=== PATIENT | female | born 1970 | race Caucasian/White ===

== ENCOUNTER → 2020-02-03 08:23 | Outpatient (CLI) | payer MEDICARE, MEDICAID, SELFPAY ==
--- NOTE | ~2020-02-03 | US_ITS ---
US soft tissue abdomen 02/03/2020 09:24 Indication: Incisional hernia. Mid abdominal pain and palpable finding. Procedure: High-resolution ultrasound of the mid abdomen soft tissues. Comparison: No prior studies for comparison. Findings: There is a heterogeneous area of hypoechoic soft tissue in the deep tissues of the mid abdo men in the area of palpable concern. This area measures 1.9 x 1.5 cm, most likely representing scarri ng/fibrosis from recent surgery performed July 2019. No evidence for hernia. Impression: 1: Irregular hypoechoic soft tissue posterior margin of the anterior abdominal wall, likely represent ing scarring from recent surgery. No evidence for hernia. Reviewed, dictated and finalized at location B. L STITCHER Impression: 1: Irregular hypoechoic soft tissue posterior margin of the anterior abdominal wall, likely representing scarring from recent surgery. No evidence for hernia.
== END ==
PROVIDERS: PCP Internal Medicine; Visit Provider Internal Medicine
DX: K43.2 Incisional hernia without obstruction or gangrene (principal)
CPT/HCPCS: 76705

== ENCOUNTER → 2020-02-03 08:28 | Outpatient (CLI) | payer MEDICARE, MEDICAID, SELFPAY ==
--- NOTE | ~2020-02-03 | US_ITS ---
EXAMINATION: US pelvic complete w TV DATE: 02/03/2020 10:31 INDICATION: Postmenopausal bleeding Comparison:No prior studies for comparison. TECHNIQUE: Multiple transabdominal and endovaginal sonographic images of the pelvis performed. FINDINGS: The uterus measures 9.3 x 3.8 x 5.2 cm. The endometrial complex measures 13 mm. The ovaries are not visualized. There is no free fluid in the pelvis. There are no abnormal masses seen on either side. IMPRESSION: 1. Thickened endomtrial complex. The differential diagnosis includes endometrial hyperplasia, polyp a nd carcinoma. Biopsy is recommended. Reviewed, dictated and finalized at location B. CTION MOLDING MACHINE SETTER IMPRESSION: 1. Thickened endomtrial complex. The differential diagnosis includes endometria l hyperplasia, polyp and carcinoma. Biopsy is recommended.
== END ==
PROVIDERS: PCP Internal Medicine; Visit Provider Obstetrics & Gynecology
DX: N95.0 Postmenopausal bleeding (principal)
CPT/HCPCS: 76830; 76856

== ENCOUNTER 2020-02-14 08:56 | Emergency (ER) | payer MEDICARE, MEDICAID, SELFPAY ==
--- NOTE | ~2020-02-14 | XR_ITS ---
XR knee LT min 4V 02/14/2020 09:22 INDICATION: Left knee pain PROCEDURE: 4 views left knee COMPARISON: No prior studies for comparison. FINDINGS: Fracture, dislocation or subluxation is not identified. No significant joint effusion. The soft tissues appear within normal limits. No foreign bodies are identified. IMPRESSION: 1: NO ACUTE BONE OR JOINT ABNORMALITY IDENTIFIED. Reviewed, dictated and finalized at location A. CTIVE PRECINCT
[2020-02-14 09:05] VITALS: BP 147/114; PULSE 114; RESP 16; TEMP 36.6; O2SAT 98
--- NOTE | 2020-02-14 10:06 | ED.LOWEXIN ---
HPI - Extremity Injury (Lower) General Chief Complaint: Extremity Injury, Lower Stated Complaint: L Knee Pain Time Seen by Provider: 02/14/20 08:57 Source: patient Mode of arrival: ambulatory Limitations: no limitations History of Present Illness HPI Narrative: 49-year-old with a history of bipolar disorder, hypertension, hypercholesteremia here with complaints of left knee pain since yesterday. Patient states that she lost her balance and fell on her left knee. She also complains of left buttock pain. She denies any head injury or neck pain. No other complaints MD complaint: knee injury (left) and fall Onset (ago): day(s) (1) Injury: Left: knee Place: home Severity: moderate Relieving factors: nothing Exacerbating factors: movement Context: fall Associated symptoms: snap/pop sensation Other symptoms: none Related Data Allergies Allergy/AdvReac Type Severity Reaction Status Date / Time No Known Allergies Allergy Unverified 08/29/16 11:41 Review of Systems Review of Systems: All systems reviewed & are unremarkable except as noted in HPI and below Constitutional: Constitutional: Reports no additional constitutional complaints Eyes: Eyes: Reports no additional eye complaints ENT: Reports system reviewed and no additional complaints, except as documented Cardiovascular: Cardiovascular: Reports no additional cardiovascular complaints Respiratory: Respiratory: Reports no additional respiratory complaints Neurologic: Reports system reviewed and no additional complaints, except as documented Endocrine: Endocrine: Reports no additional endocrine complaints PMFSH Social History Social History Gender identity (if verbalized by the patient): Female Exam Narrative: Exam Narrative: GENERAL: Well-appearing, well-nourished, and in no acute distress. HEAD: Normocephalic, atraumatic. EYES: PERRLA and EOMI. NECK: Supple. CHEST: Clear to auscultation. No respiratory distress. HEART: Regular rate and rhythm. No murmur heard. Normal peripheral pulses. ABDOMEN: Soft, nontender, nondistended, normal active bowel sounds. EXTREMITIES: Normal range of motion. Examination of the left knee shows no obvious deformity mild soft tissue swelling. Tender on palpation SKIN: Warm, dry, no rash. NEURO: No focal deficits. Alert and oriented x3. PSYCH: Normal mood and affect. Course Course Emergency Course: Inform patient about her x-ray findings advised Juan wrap and pain medication as needed Vital Signs Vital signs: Vital Signs Temperature 36.6 C 02/14/20 09:05 Pulse Rate 114 H 02/14/20 09:05 Respiratory Rate 16 02/14/20 09:05 Blood Pressure 147/114 H 02/14/20 09:05 Pulse Oximetry 98 02/14/20 09:05 Temperature 36.6 C 02/14/20 09:05 Pulse Rate 114 H 02/14/20 09:05 Respiratory Rate 16 02/14/20 09:05 Blood Pressure 147/114 H 02/14/20 09:05 Pulse Oximetry 98 02/14/20 09:05 MDM - Extremity Injury (Lower) Differential Diagnosis Differential diagnosis: Likely acute internal derangement of knee Imaging Data Radiologist's impression: ITS Impressions Knee X-Ray 02/14/20 09:25 IMPRESSION: 1: NO ACUTE BONE OR JOINT ABNORMALITY IDENTIFIED. Discharge Plan Discharge Clinical Impression: Contusion of knee, left Qualifiers: Encounter type: initial encounter Qualified Code(s): S80.02XA - Contusion of left knee, initial encounter Patient Disposition: Home, Self-Care Condition: Stable Instructions: Antibiotic Form Additional Instructions: Use Juan wrap, ice take pain medication as needed Prescriptions: New tramadol [Ultram] 50 mg tablet 50 mg PO Q6H PRN (Reason: pain) Qty: 20 RF: 0 Follow-up/Referrals: Aldo Bond MD [Primary Care Provider] - Time of Disposition: 10:14
--- NOTE | 2020-02-22 07:29 | PC.NURSE ---
LATE ENTRY This note is being entered to document information to the patient's record. The following information was omitted on [02/14/2020], by [ashley]. Wound should be charted on L knee not R.
--- NOTE | 2020-03-06 07:22 | PC.NURSE ---
CORRECTION: Pt wound was left knee.
== END 2020-02-14 10:23 | disposition home or self-care (01) ==
PROVIDERS: Emergency Provider Family Medicine; PCP Internal Medicine
DX: S80.02XA Contusion of left knee, initial encounter (principal); I10 Essential (primary) hypertension; E78.00 Pure hypercholesterolemia, unspecified; W18.39XA Other fall on same level, initial encounter
CPT/HCPCS: 73564; 99283

== ENCOUNTER → 2020-03-28 12:56 | Outpatient (CLI) | payer MEDICARE, MEDICAID, SELFPAY ==
--- NOTE | ~2020-03-28 | MM_ITS ---
EXAMINATION: MM screening nirav BI w jody HISTORY: Screening TECHNIQUE: Craniocaudal and mediolateral oblique 3-D tomosynthesis images were obtained and synthetic 2-D images were generated. CAD analysis was submitted and interpreted. COMPARISON: No prior mammogram is available for comparison at this institution. BREAST PARENCHYMAL COMPOSITION: There are scattered areas of fibroglandular density. FINDINGS: There is a benign-appearing mass in the upper outer quadrant of the right breast, consisten t with a intramammary lymph node. There is no evidence of suspicious mass, calcification, or architec tural distortion to suggest malignancy in either breast. There has been no suspicious interval change . IMPRESSION: 1. No mammographic evidence of malignancy. 2. Recommend routine screening mammography in one year. BI-RADS Category 2: Benign finding(s). Reviewed, dictated and finalized at location A. RATOR INSPECTOR
== END ==
PROVIDERS: PCP Internal Medicine; Visit Provider Obstetrics & Gynecology
DX: Z12.31 Encounter for screening mammogram for malignant neoplasm of breast (principal)
CPT/HCPCS: 77063; 77067

== ENCOUNTER → 2020-03-28 12:57 | Outpatient (CLI) | payer MEDICARE, MEDICAID, SELFPAY ==
--- NOTE | ~2020-03-28 | MR_ITS ---
EXAMINATION: MR knee LT wo con DATE: 03/28/2020 13:45 INDICATION: Acute onset left knee pain TECHNIQUE: Magnetic resonance imaging (MRI) of the left knee was performed without intravenous contra st. Sequences included coronal PD-weighted FSE, coronal PD-weighted FS FSE, sagittal T2-weighted FSE , sagittal PD-weighted FS FSE and axial PD weighted fat saturated FSE. COMPARISON: None. FINDINGS: Medial compartment: Complex medial meniscal tear including a full-thickness radial tear near the posterior root of the me dial meniscus and with longitudinal horizontal tear extending to the superior articular surface of th e more medial posterior horn and body of the medial meniscus. There appears be a small meniscal flap at the junction of the anterior horn and body. Partial-thickness cartilage loss along the medial and posterior margin of the medial tibial plateau with mild subarticular edema. Additional partial thickn ess cartilage loss with mild chondral surface regularity but without degenerative subchondral changes along the anterior to central weightbearing medial femoral condyle. Lateral compartment: Lateral meniscus is normal. Partial-thickness cartilage loss with smooth chondral surface and without degenerative subchondral changes along the lateral side of the posterior weightbearing lateral femor al condyle. Patellofemoral compartment: Articular cartilage is normal. Ligaments and tendons: No anterior cruciate ligament tissue identified which is likely sequela of a chronic complete tear. T he posterior cruciate ligament is normal. The medial collateral ligament and fibular collateral ligam ent complex are normal. The extensor mechanism is normal. The visualized medial and lateral hamstring tendons as well as the iliotibial band are normal. Fluid: Minimal left knee joint effusion with small amount of fluid in the lateral gutter of the suprapatella r pouch. No loose osteochondral bodies identified. Small Grajeda's cyst. Osseous/other: Normal marrow signal. No fracture or pathologic marrow replacing process. IMPRESSION: 1. Absent anterior cruciate ligament likely sequela of chronic complete tear. 2. Complex medial meniscal tear. 3. 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 4. Minimal left knee joint effusion and small Grajeda's cyst. Reviewed, dictated and finalized at location B. UNICATIONS CLERK
== END ==
PROVIDERS: PCP Internal Medicine; Visit Provider Internal Medicine
DX: M17.12 Unilateral primary osteoarthritis, left knee (principal); S83.232A Complex tear of medial meniscus, current injury, left knee, initial encounter; X58.XXXA Exposure to other specified factors, initial encounter; M71.22 Synovial cyst of popliteal space [Baker], left knee
CPT/HCPCS: 73721

== ENCOUNTER 2020-07-18 12:27 | Outpatient (CLI) | payer MEDICARE, MEDICAID, SELFPAY ==
--- NOTE | 2020-07-22 12:58 | WPDPFTINT ---
PFT Procedure Performed PFT Procedure Performed Spirometry with Pre/Post Bronchodilator Plethysmography (Lung Vol) Diffusing Cap (DLCO) Flow Vol Loop PFT Interpretation This PFT met all criteria for ATS standards and reproducibility FEV/FVC post bronchodilator 76% FEV1 98% FVC 102% TLC 110% RV 107% RV/TLC 34% DLCO 77 when adjusted for alveolar volume but not adjusted for hemoglobin Flow volume loops appeared normal Impression: Other than a mildly reduced diffusion capacity this is a normal pulmonary function test. Clinical correlation is advised.
--- NOTE | 2020-07-22 12:59 | WPDSIXMINUTE ---
Six Minute Walk Procedure Procedure Performed Pulmonary Stress Test (6 min walk) Six Minute Walk Six Minute Walk: The patients O2 sats started at 95% and dropped as low as 94% on room air Total walk distance 274.32 m conclusion: this patient does not qualify for home oxygen therapy.
== END 2020-07-18 12:28 | disposition home or self-care (01) ==
PROVIDERS: PCP Internal Medicine; Visit Provider Nurse Practitioner
DX: J44.9 Chronic obstructive pulmonary disease, unspecified (principal)
CPT/HCPCS: 94060; 94618; 94726; 94729

== ENCOUNTER 2020-10-26 10:56 | Emergency (ER) | payer MEDICARE, MEDICAID, SELFPAY ==
[2020-10-26] VITALS (11 sets, daily range): BP systolic 147–154; BP diastolic 91–105; PULSE 77–96; RESP 12–25; TEMP 35.9; O2SAT 95–98
--- NOTE | ~2020-10-26 | XR_ITS ---
EXAMINATION: XR chest 1V portable EXAM DATE: 10/26/2020 12:28 INDICATION: Cough, shortness of breath. COVID exposure. TECHNIQUE: Portable AP frontal chest x-ray was obtained. There is no prior study for comparison. FINDINGS: The lungs are clear. There are no pleural effusions. The cardiomediastinal silhouette is within normal limits. There is no pneumothorax suspected. The bones and soft tissues are unremarkab le. IMPRESSION: No acute cardiopulmonary findings. Reviewed, dictated and finalized at location A.
--- NOTE | ~2020-10-26 | CT_ITS ---
EXAMINATION: CTA chest PE protocol DATE: 10/26/2020 14:54 INDICATION: Shortness of breath. Chest pain. TECHNIQUE: Computed tomography angiography (CTA) of the chest was performed with 100 mL Omnipaque-350 intravenous contrast timed to evaluate the pulmonary arteries. Coronal maximum intensity projection 3D-reconstructions were created by the technologist. Automated exposure control and iterative reconst ruction technique were employed. The dose-length product was 1060.81 mGy-cm. COMPARISON: Chest single view 10/26/2020 FINDINGS: There is mild atelectasis bilaterally. No pleural effusion. The heart size is normal. No pe ricardial effusion. There is no pulmonary embolus. There is a small sliding hiatal hernia. There is a 1.7 cm cyst in the liver. There is mild thoracic spondylosis. IMPRESSION: 1. No pulmonary embolus. 2. Small sliding hiatal hernia. Reviewed, dictated and finalized at location A.
--- NOTE | 2020-10-26 10:59 | ECG_ITS ---
Measurements Intervals [place] Rate: 88 P: 50 [place]: 151 QRS: 20 QRSD: 92 T: 26 QT: 362 QTc: 439 Interpretive Statements SINUS RHYTHM NORMAL ECG Electronically Signed On 10-26-2020 11:31:16 CDT by Santiago Bazan D.O.
[2020-10-26 13:50] LABS: Basophils Percent Auto 0.5 % (0.2-1.2); Eosinophils Absolute Auto 0.1 K/mm3 (0-0.3); Eosinophils Percent Auto 0.8 % (0-4.4); Hematocrit 44.3 % (37.0-47.0); Hemoglobin 14.3 g/dL (12.0-15.0); Immature Granulocyte Absolute 0.01 K/mm3 (0.00-0.031); Immature Granulocyte Percent A 0.1 % (0-0.5); Lymphocytes Absolute Auto 2.83 K/mm3 (0.9-3.2); Lymphocytes Percent Auto 32.6 % (18.3-44.2); Mean Corpuscular HGB Conc 32.3 g/dl (32-36); Mean Corpuscular Hemoglobin 27.4 pg (26-34); Mean Corpuscular Volume 84.9 fl (80-100); Mean Platelet Volume 9.7 fl (7.4-10.4); Monocytes Absolute Auto 0.6 K/mm3 (0.1-0.6); Monocytes Percent Auto 6.6 % (2.6-8.5); Neutrophils Absolute Auto 5.2 K/mm3 (1.3-6.7); Neutrophils Percent Auto 59.4 % (45.5-73.1); Platelet Count Result 335 k/mm3 (150-375); Red Blood Count 5.22 M/mm3 (4.2-5.4); Red Cell Distribution Width 14.3 % (11.5-14.5); White Blood Count 8.7 K/mm3 (4.5-10.0)
[2020-10-26 14:00] LABS: Alanine Aminotransferase 24 U/L (4-35); Albumin Level 4.2 g/dL (3.5-5.1); Alkaline Phosphatase 84 U/L (38-126); Anion Gap 9 mmol/L (8-16); Aspartate Amino Transferase 26 U/L (14-36); Bilirubin,Total 0.1 mg/dL (0.2-1.3); Blood Urea Nitrogen 13 mg/dL (7-17); Calcium 9.2 mg/dL (8.4-10.2); Carbon Dioxide 22 mmol/L (22-30); Chloride 107 mmol/L (98-107); Estimated CRCL calculation 108 ml/min; Estimated Glomerular Filt Rate > 60; Glucose 124 mg/dL (65-110); INR 0.9; Potassium 3.6 mmol/L (3.4-5.0); Prothrombin Time 12.4 Seconds (11.1-14.7); Sodium 138 mmol/L (137-145)
[2020-10-26 14:01] LABS: Partial Thromboplastin Time 24.2 SECONDS (22.3-36.8)
[2020-10-26 14:12] LABS: Troponin I < 0.012 ng/mL (0.000-0.034)
--- NOTE | 2020-10-26 14:25 | ED.URI ---
HPI - URI/Sore Throat General Chief Complaint: Upper Respiratory Infection Stated Complaint: Upper Respiratory Infection, COVID Exposure Time Seen by Provider: 10/26/20 13:16 Source: patient Mode of arrival: ambulatory Limitations: no limitations History of Present Illness HPI Narrative: This is a 50-year-old female that presents to the emergency department for cold symptoms x1 week. Reports cough, congestion, rhinorrhea, and ear pain. Reports tightness in her chest and feeling short of breath. She does have history of COPD and has an albuterol inhaler as needed. She had a close relative that recently was diagnosed with Covid. She did receive the Ricki & Ricki vaccine. Denies fever or lower extremity edema. Related Data Home Medications Medication Instructions Recorded Confirmed amlodipine 10/26/20 atorvastatin 10/26/20 diazepam 10/26/20 drospirenone (contraceptive) 10/26/20 [Slynd] estradiol mg 10/26/20 fluoxetine mg 10/26/20 lamotrigine 10/26/20 tizanidine mg 10/26/20 Allergies Allergy/AdvReac Type Severity Reaction Status Date / Time No Known Allergies Allergy Unverified 08/29/16 11:41 Review of Systems Review of Systems: CONSTITUTIONAL: Denies fever ENT: Reports rhinorrhea, congestion, and otalgia. Denies sore throat CARDIOVASCULAR: Reports chest pain. Denies edema. RESPIRATORY: Reports cough and dyspnea. All systems reviewed & are unremarkable except as noted in HPI and below PMFSH Past Medical History Medical History (Updated 10/26/20 @ 15:16 by Jada Bryant PA-C) Bipolar 1 disorder History of COPD HTN (hypertension), benign Social History Social History (Updated 10/26/20 @ 14:30 by Jada Bryant PA-C) Smoking status: Current every day smoker Gender identity (if verbalized by the patient): Female Exam Narrative: GENERAL: Well-appearing, obese, and in no acute distress. HEAD: Normocephalic, atraumatic. EYES: EOMI. ENT: Nares clear, no rhinorrhea or epistaxis. Mucous membranes moist. Oropharynx without tonsillar hypertrophy exudate or other lesions. Bilateral TMs pearly torres non-bulging NECK: Supple. No adenopathy or masses. CHEST: Lungs sounds are mildly restricted bilaterally. Clear to auscultation. No respiratory distress. No wheezes rales or rhonchi HEART: Regular rate and rhythm. No murmur heard. Normal peripheral pulses. EXTREMITIES: Normal range of motion. No edema. SKIN: Warm, dry, no rash. NEURO: No focal deficits. Alert and oriented x3. PSYCH: Normal mood and affect Course Vital Signs Vital signs: Vital Signs Temperature 96.6 F L 10/26/20 11:07 Pulse Rate 96 10/26/20 11:07 Respiratory Rate 15 10/26/20 11:07 Blood Pressure 150/91 H 10/26/20 11:07 Pulse Oximetry 97 10/26/20 11:07 Temperature 96.6 F L 10/26/20 11:07 Pulse Rate 84 10/26/20 14:44 Respiratory Rate 20 10/26/20 14:44 Blood Pressure 147/105 H 10/26/20 11:17 Pulse Oximetry 98 10/26/20 12:00 MDM - URI/Sore Throat MDM Narrative Medical decision making narrative: Patient presents to the emergency department for cold symptoms ongoing over the last week. She is afebrile and nontoxic-appearing. Oxygen saturation has remained normal on room air. CBC and metabolic panel without concerning findings. EKG without concerning changes and baseline troponin is negative. D-dimer was mildly elevated, so CTA of the chest was obtained. This is without evidence of PE or acute cardiopulmonary abnormality. His Covid two was sent. Patient instructed on continued care of viral infection. She is to follow-up with her primary care doctor. She was given warnings to return to the ER Lab Data Attestation: I reviewed the patient's lab results. Result diagrams: 10/26/20 13:38 10/26/20 13:38 Labs: Lab Results 10/26/20 10/26/20 10/26/20 Range/Units 13:38 13:38 13:38 WBC 8.7 (4.5-10.0) K/mm3 RBC 5.22 (4.2-5.4) M/mm3 Hgb 14.3
[2020-10-26] MEDS: methylPREDNISolone SOD SUCC 125 MG VIAL IV PUSH (14:32)
[2020-10-26] MEDS: ALBUTEROL SULFATE NEB 2.5 MG/0.5 ML INH 5 MG INHALATION (14:33)
[2020-10-26] MEDS: IPRATROPIUM BR 0.02% INH SOLN 0.5 MG/2.5 ML VIAL INHALATION (14:33)
[2020-10-27 18:23] LABS: SARS-CoV-2 RNA PCR Negative
== END 2020-10-26 15:37 | disposition home or self-care (01) ==
PROVIDERS: Physician Assistant; Emergency Provider Emergency Medicine; PCP Internal Medicine
DX: J20.9 Acute bronchitis, unspecified (principal); Z20.822 Contact with and (suspected) exposure to COVID-19; J45.909 Unspecified asthma, uncomplicated; I10 Essential (primary) hypertension; F17.200 Nicotine dependence, unspecified, uncomplicated; K44.9 Diaphragmatic hernia without obstruction or gangrene; R06.02 Shortness of breath
CPT/HCPCS: 36415; 71045; 71275; 80053; 84484; 85025; 85380; 85610; 85730; 93005; 94640; 96374; 99284; C9803; J2930; Q9967; U0003; U0005

== ENCOUNTER → 2022-09-20 08:49 | Outpatient (CLI) | payer MEDICARE, MEDICAID, SELFPAY ==
--- NOTE | ~2022-09-20 | CT_ITS ---
CT Scan of the Chest without Contrast: Clinical Indication: Lung nodules Technique: Contiguous sections were acquired throughout the chest without intravenous contrast. Dose reduction technique was used on this scan by utilizing automated exposure control and iterative recon struction technique. The dose-length product (DLP) was 437.74 mGy-cm. COMPARISON: 10/26/2020 Findings: There is no evidence of any significant mediastinal, hilar or axillary lymphadenopathy. The mediastin al soft tissues appear normal. There is no evidence of pleural or pericardial effusion. The lungs are clear. No pulmonary nodules or infiltrates are noted. Images through the upper abdomen reveal no abnormalities. Impression: No significant abnormalities seen. Reviewed, dictated and finalized at location . Impression: No significant abnormalities seen.
== END ==
PROVIDERS: PCP Nurse Practitioner; Visit Provider Nurse Practitioner
DX: R91.8 Other nonspecific abnormal finding of lung field (principal)
CPT/HCPCS: 71250